=== PATIENT | male | born 1990 | race Caucasian/White ===

== ENCOUNTER 2022-12-22 14:10 | Outpatient (CLI) | payer BC, SELFPAY ==
[2022-12-22 20:18] LABS: Albumin* 4.8 g/dL (3.3-5.0); Chloride* 104 mmol/L (96-114); Sodium* 141 mmol/L (135-149)
[2022-12-22 20:20] LABS: Creatinine* 0.8 mg/dL (0.5-1.5); Estimated Glomerular Filt Rate 121 ml/min
[2022-12-22 20:21] LABS: Alanine Aminotransferase* 26 U/L (4-50); Alkaline Phosphatase* 42 U/L (40-150); Aspartate Amino Transferase* 24 U/L (12-35); Bilirubin Total* 1.3 mg/dL (0.1-1.5); Blood Urea Nitrogen* 8 mg/dL (5-24); Calcium* 9.2 mg/dL (8.4-10.6); Carbon Dioxide* 27 mmol/L (20-32); Glucose* 106 mg/dL (60-115); Potassium* 3.6 mmol/L (3.6-5.1); Total Protein* 7.5 g/dL (6.0-8.3)
== END 2022-12-22 14:11 | disposition home or self-care (01) ==
LOC: NFLDREF 14:13
PROVIDERS: Visit Provider Internal Medicine
DX: R10.9 Unspecified abdominal pain (principal)
CPT/HCPCS: 80053

== ENCOUNTER 2023-02-15 08:15 | Outpatient (CLI) | payer BC, SELFPAY ==
--- NOTE | 2023-02-15 08:15 | CRLHL7_ITS ---
For Patients: As a result of the Century Cures Act, medical imaging exams and procedure reports are released immediately into your electronic medical record. You may view this report before your referring provider. If you have questions, please contact your health care provider. INDICATION: RUQ PAIN COMPARISON: none TECHNIQUE: Real time lowe scale imaging and color Doppler analysis was performed of the right upper quadrant. FINDINGS: The patient`s liver is of normal size and has uniform echogenicity. There is a normal appearance of the hepatic IVC and proximal abdominal aorta. There is no evidence of ascites. The gallbladder is of normal size and there is no evidence of intraluminal stones or sludge. The gallbladder wall measures 2 mm in thickness. The common bile duct is of normal size and measures 3 mm in diameter at the level of the tamara hepatis. The visualized pancreas appears normal. There is no evidence of a stone or hydronephrosis within the right kidney. The right kidney measures 12.1 cm in length. IMPRESSION: Normal right upper quadrant ultrasound. Dictated by Jose A Mathis MD @ 02/15/2023 9:30:39 AM (Electronically Signed)
== END 2023-02-15 08:16 | disposition home or self-care (01) ==
PROVIDERS: PCP Internal Medicine; Visit Provider Internal Medicine
DX: R10.11 Right upper quadrant pain (principal)
CPT/HCPCS: 76705

== ENCOUNTER 2023-03-31 13:21 | Outpatient (CLI) | payer BC, SELFPAY | END 2023-03-31 13:22 | disposition home or self-care (01) | LOC: NFLDREF 13:21 | PROVIDERS: PCP Internal Medicine; Visit Provider Internal Medicine | DX: J02.9 Acute pharyngitis, unspecified (principal) | CPT/HCPCS: 87070 ==